=== PATIENT | male | born 1995 | race African-American/Black ===

== ENCOUNTER → 2024-12-09 | Outpatient (CLI) | payer OTHER ==
--- NOTE | 2024-12-09 10:57 | HMCIMG ---
Exam Type: US ABDOMINAL RUQ\E\LTD Clinical Information: ABN FINDINGS ON BLOOD, UNSPECIFIED Comparison: None Findings: The liver shows normal echogenicity and shows an echogenic structure of the right lobe measuring 13 mm consistent with a benign hemangioma. The liver measures less than 16 cm in length. Doppler evaluation shows patent portal and hepatic veins. The gallbladder shows no significant abnormalities. Specifically, no calculi are seen. The gallbladder wall thickness is 2 mm. No bile duct dilatation is noted. The common bile duct measures 4 mm. The right kidney measures 9.4 x 4.6 cm. The right kidney is normal in size and echogenicity. No hydronephrosis or renal calculi are seen. There are no renal masses. The pancreas is unremarkable. IMPRESSION: Right liver lobe hemangioma.
== END | disposition home or self-care (01) ==
LOC: EEVIPCON 09:40 → RAH 09:40
PROVIDERS: ATTEND Family Medicine
DX: D18.09 Hemangioma of other sites (principal); R79.9 Abnormal finding of blood chemistry, unspecified
CPT/HCPCS: 76705